=== PATIENT | male | born 1960 ===

== ENCOUNTER 2022-01-09 15:04 | Inpatient (IN) ==
[2022-01-09] MEDS ORDERED: Hyoscyamine SL 0.125 MG TAB.SUBL SL PRN (15:46)
[2022-01-09] MEDS: Sennosides/Docusate Sodium TABLET PO SCH (23:12)
[2022-01-10] MEDS: *HR* LORazepam 2 MG/ML VIAL IVP PRN ×5 (00:03→22:35)
[2022-01-10] MEDS: CYCLOSPORINE 100 MG/ML GTUBE SCH ×3 (00:12→20:20)
[2022-01-10] MEDS: MYCOPHENOLATE MOFETIL 200 MG/ML GTUBE SCH ×3 (00:12→20:17)
[2022-01-10] MEDS: Morphine Sulfate 2 MG/ML SYRINGE IVP PRN ×8 (02:56→22:36)
[2022-01-10] MEDS: Ondansetron 4 MG/2 ML VIAL IVP PRN ×3 (06:05→20:14)
[2022-01-10] MEDS: predniSONE 5 MG TABLET GTUBE SCH (08:13)
[2022-01-10] MEDS: Sennosides/Docusate Sodium TABLET PO SCH ×2 (08:14→20:14)
[2022-01-10] MEDS: *HR* LORazepam Oral Conc 2 MG/ML PO PRN (19:17)
[2022-01-10] MEDS: Haloperidol Oral Conc 10 MG/5 ML UDC PO PRN (20:20)
[2022-01-11] MEDS: Morphine Sulfate 2 MG/ML SYRINGE IVP PRN ×3 (00:48→05:55)
[2022-01-11] MEDS: *HR* LORazepam Oral Conc 2 MG/ML PO PRN ×2 (00:48→07:53)
[2022-01-11] MEDS: Ondansetron 4 MG/2 ML VIAL IVP PRN ×2 (02:34→06:30)
[2022-01-11] MEDS: Haloperidol Oral Conc 10 MG/5 ML UDC PO PRN ×5 (02:34→18:20)
[2022-01-11] MEDS: *HR* LORazepam 2 MG/ML VIAL IVP PRN (05:54)
[2022-01-11] MEDS ORDERED: Morphine Sulfate Oral CONC 10 MG/0.5 ML ORAL.SYG SL PRN (08:17)
[2022-01-11] MEDS: predniSONE 5 MG TABLET GTUBE SCH (09:08)
[2022-01-11] MEDS: Sennosides/Docusate Sodium TABLET PO SCH ×2 (09:08→22:18)
[2022-01-11] MEDS: MYCOPHENOLATE MOFETIL 200 MG/ML GTUBE SCH ×2 (09:08→22:18)
[2022-01-11] MEDS: CYCLOSPORINE 100 MG/ML GTUBE SCH ×2 (09:08→22:18)
[2022-01-11] MEDS ORDERED: *HR* LORazepam Oral Conc 2 MG/ML PO PRN (11:29)
[2022-01-11] MEDS ORDERED: *HR* LORazepam 2 MG/ML VIAL IVP PRN (11:29)
[2022-01-11] MEDS: Haloperidol Oral Conc 10 MG/5 ML UDC PO SCH ×4 (12:17→23:19)
[2022-01-11] MEDS: Morphine Sulfate Oral CONC 10 MG/0.5 ML ORAL.SYG SL SCH ×3 (12:17→20:17)
[2022-01-11] MEDS: Morphine Sulfate Oral CONC 10 MG/0.5 ML ORAL.SYG SL PRN ×2 (14:08→18:20)
[2022-01-12] MEDS: Morphine Sulfate Oral CONC 10 MG/0.5 ML ORAL.SYG SL SCH ×7 (00:02→23:28)
[2022-01-12] MEDS: Haloperidol Oral Conc 10 MG/5 ML UDC PO SCH ×6 (04:40→23:28)
[2022-01-12] MEDS: CYCLOSPORINE 100 MG/ML GTUBE SCH ×2 (07:46→20:06)
[2022-01-12] MEDS: Sennosides/Docusate Sodium TABLET PO SCH ×2 (07:46→19:54)
[2022-01-12] MEDS: predniSONE 5 MG TABLET GTUBE SCH (07:46)
[2022-01-12] MEDS: MYCOPHENOLATE MOFETIL 200 MG/ML GTUBE SCH ×2 (07:46→19:56)
[2022-01-12] MEDS: Morphine Sulfate Oral CONC 10 MG/0.5 ML ORAL.SYG SL PRN ×2 (17:21→23:51)
[2022-01-12 18:13] VITALS: RESP 15
[2022-01-12] MEDS: Haloperidol Oral Conc 10 MG/5 ML UDC PO PRN (22:24)
[2022-01-13] MEDS: Morphine Sulfate Oral CONC 10 MG/0.5 ML ORAL.SYG SL PRN ×2 (01:09→05:03)
[2022-01-13] MEDS: Haloperidol Oral Conc 10 MG/5 ML UDC PO PRN ×2 (01:09→05:33)
[2022-01-13] MEDS: Haloperidol Oral Conc 10 MG/5 ML UDC PO SCH ×3 (03:29→12:14)
[2022-01-13] MEDS: Morphine Sulfate Oral CONC 10 MG/0.5 ML ORAL.SYG SL SCH ×3 (04:03→12:15)
[2022-01-13] MEDS: MYCOPHENOLATE MOFETIL 200 MG/ML GTUBE SCH (07:48)
[2022-01-13] MEDS: CYCLOSPORINE 100 MG/ML GTUBE SCH (07:48)
[2022-01-13] MEDS: Sennosides/Docusate Sodium TABLET PO SCH (07:49)
[2022-01-13] MEDS: predniSONE 5 MG TABLET GTUBE SCH (07:49)
[2022-01-13 07:58] VITALS: BP 103/70; PULSE 98; TEMP 98; O2SAT 98
[2022-01-13] MEDS ORDERED: Ondansetron ODT 4 MG TAB.RAPDIS SL PRN (08:30)
== END 2022-01-13 13:30 | disposition hospice, home (50) | DRG 951 ==
LOC: INPGRE 16:51
PROVIDERS: ADMIT Family Medicine; ATTEND Family Medicine

== ENCOUNTER 2022-01-13 13:14 | Inpatient (IN) ==
[2022-01-13] MEDS ORDERED: Haloperidol Oral Conc 10 MG/5 ML UDC PO PRN ×2 (13:35→17:15)
[2022-01-13] MEDS ORDERED: Hyoscyamine SL 0.125 MG TAB.SUBL SL PRN (13:37)
[2022-01-13] MEDS ORDERED: Morphine Sulfate Oral CONC 10 MG/0.5 ML ORAL.SYG SL PRN (13:40)
[2022-01-13] MEDS ORDERED: Ondansetron ODT 4 MG TAB.RAPDIS SL PRN (13:41)
[2022-01-13] MEDS ORDERED: Ondansetron ODT 4 MG TAB.RAPDIS GTUBE PRN (15:00)
[2022-01-13] MEDS ORDERED: Haloperidol Oral Conc 10 MG/5 ML UDC GTUBE PRN (15:00)
[2022-01-13] MEDS ORDERED: Hyoscyamine SL 0.125 MG TAB.SUBL GTUBE PRN (15:00)
[2022-01-13] MEDS ORDERED: Morphine Sulfate Oral CONC 10 MG/0.5 ML ORAL.SYG GTUBE PRN (15:00)
[2022-01-13] MEDS ORDERED: Morphine Sulfate Oral CONC 10 MG/0.5 ML ORAL.SYG GTUBE SCH (16:00)
[2022-01-13] MEDS ORDERED: Haloperidol Oral Conc 10 MG/5 ML UDC GTUBE SCH (16:00)
[2022-01-13] MEDS: Haloperidol Oral Conc 10 MG/5 ML UDC PO SCH (20:43)
[2022-01-13] MEDS: Morphine Sulfate Oral CONC 10 MG/0.5 ML ORAL.SYG SL SCH (20:44)
[2022-01-13] MEDS: mycophenolate mofetiL 250 MG/1.25 ML SUSP.RECON GTUBE SCH ×2 (20:45→21:05)
[2022-01-13] MEDS: CYCLOSPORINE 100 MG/ML GTUBE SCH ×2 (20:45→21:04)
[2022-01-14] MEDS: Morphine Sulfate Oral CONC 10 MG/0.5 ML ORAL.SYG SL SCH ×4 (00:37→12:18)
[2022-01-14] MEDS: Haloperidol Oral Conc 10 MG/5 ML UDC PO SCH ×4 (00:37→12:15)
[2022-01-14] MEDS: Morphine Sulfate Oral CONC 10 MG/0.5 ML ORAL.SYG SL PRN ×2 (01:24→09:37)
[2022-01-14 06:51] VITALS: BP 99/63; PULSE 103; RESP 15; TEMP 98.3; O2SAT 97
[2022-01-14] MEDS: CYCLOSPORINE 100 MG/ML GTUBE SCH (07:51)
[2022-01-14] MEDS: mycophenolate mofetiL 250 MG/1.25 ML SUSP.RECON GTUBE SCH (07:52)
[2022-01-14] MEDS ORDERED: predniSONE 5 MG TABLET GTUBE SCH (09:00)
== END 2022-01-14 13:30 | disposition home or self-care (01) | DRG 951 ==
LOC: INPGRE 13:51
PROVIDERS: ADMIT Family Medicine; ATTEND Family Medicine